=== PATIENT | male | born 1985 | race Caucasian/White ===

== ENCOUNTER 2018-09-11 12:54 | Emergency (ER) | payer OTHER ==
[2018-09-11] MEDS ORDERED: NS 1,000 ML IV ONE (13:10)
--- NOTE | 2018-09-11 13:13 | EDPHY ---
H & P Stated Complaint: Periumbilical pain x 6 days Time Seen by Provider: 09/11/18 13:06 HPI/ROS: CHIEF COMPLAINT: Abdominal discomfort HISTORY OF PRESENT ILLNESS: The patient is a 32-year-old man who comes to the emergency department complaining that his abdomen does not feel right and feels weird. He states that it began last Thursday and Thursday but seemed to resolve during the week. He talked to his primary care doctor who suggested that maybe he had a little food poisoning but is seem to resolve. They told him however that if returned to come to the ER to have his appendix evaluated. He states that yesterday it returned and has been persistent through today. No nausea, vomiting or diarrhea. No fever. It is around his umbilicus and does not tend to radiate. He has been able to eat. No urinary symptoms. No previous surgery. He states that it is not pain that is more of a weird feeling and a gurgling. Severity: Moderate Modifying factors: None REVIEW OF SYSTEMS: Constitutional: denies: chills, fever, recent illness, recent injury EENTM: denies: blurred vision, double vision, nose congestion Respiratory: denies: cough, shortness of breath Cardiac: denies: chest pain, irregular heart rate, lightheadedness, palpitations Gastrointestinal/Abdominal: See HPI Genitourinary: denies: dysuria, frequency, hematuria, pain Musculoskeletal: denies: joint pain, muscle pain Skin: denies: lesions, rash, jaundice, bruising Neurological: denies: headache, numbness, paresthesia, tingling, dizziness, weakness Hematologic/Lymphatic: denies: blood clots, easy bleeding, easy bruising Immunologic/allergic: denies: HIV/AIDS, transplant 10 systems reviewed and negative except as noted EXAM: GENERAL: Well-appearing, well-nourished and in no acute distress. HEAD: Atraumatic, normocephalic. EYES: Pupils equal round and reactive to light, extraocular movements intact, sclera anicteric, conjunctiva are normal. ENT: TMs normal, nares patent, oropharynx clear without exudates. Moist mucous membranes. NECK: Normal range of motion, supple without lymphadenopathy or JVD. LUNGS: Breath sounds clear to auscultation bilaterally and equal. No wheezes rales or rhonchi. HEART: Regular rate and rhythm without murmurs, rubs or gallops. ABDOMEN: Soft, nontender, normoactive bowel sounds. No guarding, no rebound. No masses appreciated. BACK: No CVA tenderness, no spinal tenderness, step-offs or deformities EXTREMITIES: Normal range of motion, no pitting or edema. No clubbing or cyanosis. NEUROLOGICAL: Cranial nerves II through XII grossly intact. Normal speech, normal gait. 5/5 strength, normal movement in all extremities, normal sensation , normal reflexes PSYCH: Normal mood, normal affect. SKIN: Warm, dry, normal turgor, no visible rashes or lesions. Source: Patient Exam Limitations: No limitations - Medical/Surgical History Hx Asthma: No Hx Chronic Respiratory Disease: No Hx Diabetes: No Hx Cardiac Disease: No Hx Renal Disease: No Hx Cirrhosis: No Hx Alcoholism: No Hx HIV/AIDS: No Hx Splenectomy or Spleen Trauma: No Other PMH: denies - Family History Significant Family History: No pertinent family hx - Social History Smoking Status: Never smoked Alcohol Use: None Drug Use: None Constitutional: Initial Vital Signs Temperature (C) 36.5 C 09/11/18 12:57 Heart Rate 77 09/11/18 12:57 Respiratory Rate 18 09/11/18 12:57 Blood Pressure 118/76 09/11/18 12:57 O2 Sat (%) 97 09/11/18 12:57 O2 Delivery Mode Room Air Allergies/Adverse Reactions: Tetanus Vaccines and Toxoid [Tetanus Vaccines & Toxoid] Allergy (Verified 12:41) Home Medications: Medication Instructions Recorded Claritin-D 12 Hour Tablet 07/30/14 Medical Decision Making - Diagnostics Imaging: Discussed imaging studies w/ scallop cutter machine Radiologist ED Course/Re-evaluation: Discussed patient's CT scan as well as lab work. He is reassured. His abdomen is nontender here. Discussed follow-up as well as indications for returning to the ER. He feels comfortable with this plan. Differential Diagnosis: Partial list of the Differential diagnosis considered include but were not limited to; gastritis, food poisoning, anxiety , appendicitis and although unlikely based on the history and physical exam, I also considered pneumonia, diverticulitis, biliary disease. I discussed these differential diagnoses and the plan with the patient as well as the usual and expected course. The patient understands that the diagnosis is provisional and that in medicine we are not always correct and that further workup is often warranted. Usual and customary warnings were given. All of the patient's questions were answered. The patient was instructed to return to the emergency department should the symptoms at all worsen or return, otherwise to followup with the physician as we discussed. - Data Points Laboratory Results: Laboratory Results 09/11/18 11:31 09/11/18 11:31 Medications Given: Discontinued Medications Sodium Chloride (Ns) 1,000 mls @ 0 mls/hr IV EDNOW ONE; Wide Open PRN Reason: Protocol Stop: 09/11/18 13:11 Last Admin: 09/11/18 13:17 Dose: 1,000 mls Point of Care Test Results: Chemistry 09/11/18 13:23 POC Sodium 143 mEq/L mEq/L (135-145) POC Potassium 4.1 mEq/L mEq/L (3.3-5.0) POC Chloride 103 mEq/L mEq/L (97-110) POC Total CO2 29 mEq/L mEq/L (22-31) POC BUN 19 mg/dL mg/dL (7-23) POC Creatinine 1.0 mg/dL mg/dL (0.7-1.3) POC Glucose 82 mg/dL mg/dL (70-100) ISTAT H&H 09/11/18 13:23 POC Hgb 17.0 gm/dL gm/dL (13.7-17.5) POC Hct 50 % % (40-51) Departure - Departure Disposition: Home, Routine, Self-Care Clinical Impression: Abdominal pain Qualifiers: Abdominal location: periumbilical Qualified Code(s): R10.33 - Periumbilical pain Condition: Fair Instructions: Acute Abdominal Pain (ED) Referrals: Bentley Morales MD [Primary Care Provider] - 2-3 days, call for appt.
[2018-09-11 13:34] LABS: PLATELET COUNT 215 10^3/uL (150-400)
[2018-09-11] MEDS ORDERED: IOPAMIDOL (ISOVUE-300) 100 ML BTL ONE (14:04)
[2018-09-11 14:56] VITALS: BP 124/75
== END 2018-09-11 14:56 | disposition home or self-care (01) ==
DX: R10.33 Periumbilical pain (principal); E86.9 Volume depletion, unspecified
CPT/HCPCS: 82435-PO; 82565-PO; 82947-PO; 84132-PO; 84295-PO; 84520-PO; 85014-ER; Q9967